=== PATIENT | female | born 1965 | race Caucasian/White ===

== ENCOUNTER 2023-03-21 14:53 | Observation (INO) | payer BC ==
[~2023-03-21] VITALS: Ht 157.5 cm; Wt 79.2 kg
[2023-03-21 15:51] LABS: BASOPHILS ABSOLUTE AUTO 0.08 K/mm3 (0.00-0.23); BASOPHILS PERCENT AUTO 1 % (0-2); EOSINOPHILS ABSOLUTE AUTO 0.23 K/mm3 (0.00-0.68); EOSINOPHILS PERCENT AUTO 3 % (0-6); Hematocrit 44.9 % (33.0-51.0); Hemoglobin 15.6 g/dL (11.5-16.0); IMMATURE GRAN ABSOLUTE AUTO 0.03 K/mm3 (0.00-0.10); IMMATURE GRAN PERCENT AUTO 0 % (0-1); LYMPHOCYTES ABSOLUTE AUTO 3.41 K/mm3 (0.84-5.20); LYMPHOCYTES PERCENT AUTO 41 % (21-46); MONOCYTES ABSOLUTE AUTO 0.68 K/mm3 (0.16-1.47); MONOCYTES PERCENT AUTO 8 % (4-13); Mean Corpuscular HGB 32.1 pg (26.0-34.0); Mean Corpuscular HGB Conc 34.7 g/dL (31.5-36.5); Mean Corpuscular Volume 92 fL (80-100); NEUTROPHILS ABSOLUTE AUTO 3.98 K/mm3 (1.96-9.15); NEUTROPHILS PERCENT AUTO 47 % (41-73); Platelet Count 339 K/mm3 (150-400); RDW Coefficient Variation 11.9 % (11.7-14.2); RDW Standard Deviation 40.8 fL (35.1-46.3); Red Blood Cell Count 4.86 M/mm3 (3.80-5.20); White Blood Cell Count 8.41 K/mm3 (4.00-11.30)
[2023-03-21 16:11] LABS: Albumin, Blood 4.2 g/dL (3.4-5.0); Albumin/Globulin Ratio 1.2 (0.8-1.8); Bilirubin, Total 0.6 mg/dL (0.1-1.0); Bun/Creatinine Ratio 22.2 (12.0-20.0); Creatinine, Blood 0.63 mg/dL (0.40-1.00); Globulin, Blood 3.5 g/dL (2.2-4.0); Potassium, Blood 3.6 mmol/L (3.5-5.5); Total Protein, Blood 7.7 g/dL (6.4-8.2)
[2023-03-21 21:24] VITALS: BP 131/102
[2023-03-21 22:11] VITALS: BP 117/76
--- NOTE | 2023-03-21 22:24 | NUR ---
ADMISSION NOTE REPORT RECEIVED FROM RUTH ANN MCFADDEN-ED. PATIENT TRANSPORTED TO FLOOR IN W/C AT 2120. A&OX4. PATIENT EFFECTIVELY COMMICATES NEEDS. CLEAR SPEECH. PATIENT INDEPENDENT IN ROOM. NO NEUROLOGICAL SIGNS OR SYMPTOMS AT THIS TIME. VSS. RR EVEN AND UNLABORED ON RA. TELE PENDING. PATIENT CONSUMED HALF OF A SANDWICH AND A PIECE OF CHEESE BEFORE LAYING DOWN FOR BED. NO ACUTE CONCERNS AT THIS TIME. PATIENT ORIENTED TO ROOM AND CALL LIGHT. CALL LIGHT WITHIN REACH BED LOW AND LOCKED. THIS RN WILL CONTINUE TO MONITOR. MRI HEAD W/O CONTRAST SCHEDULED FOR IN THE MORNING.
[2023-03-22 04:27] VITALS: BP 99/72
--- NOTE | 2023-03-22 04:57 | NUR ---
CATHETERIZATION LABORATORY TECHNICIAN SUMMARY NO ACUTE EVENTS THIS SHIFT. A&OX4. PATIENT EFFECTIVELY COMMUNICATES NEEDS. CLEAR SPEECH. TELE REVEALS SINUS RHYTHM, HR 60'S. NO NEUROLOGICAL SIGNS OR SYMPTOMS THROUGHOUT THE NIGHT. MRI IS SCHEDULED FOR TODAY. PATIENT NOTED TO SLEEP WELL WITHOUT ANY COMPLAINTS. BED LOW AND LOCKED. CALL LIGHT WITHIN REACH. THIS RN WILL CONTINUE TO MONITOR.
[2023-03-22 08:22] VITALS: BP 118/86
--- NOTE | 2023-03-22 14:52 | NUR ---
[facility] with many years of experience. I responded to a referral for spiritual care. She is pleasant and kind and has her son Nick corbett. They both share about the move to this area and about the importance of their family and of their emmie. I encourage self-care and provide encouragement and prayer. Patient responded well and displayed evidence of greater peace. I will continue to remain available to patient and family.
[2023-03-22] MEDS ORDERED: Flonase 0.05% N16 GM (15:00)
[2023-03-22] MEDS ORDERED: PHENY.5NI (15:01)
--- NOTE | 2023-03-22 16:05 | NUR ---
PT DISCHARGED THE PT VERBALIZED UNDERSTANDING OF THE DC INSTRUCTIONS. THE PTS PRESCRIPTIONS WERE FAXED TO [facility] ON [facility] REQUESTED. THE PT WWAS ENCOURAGED TO ESTABLISH AND FOLLOW UP WITH A PCP SSON POSSIBLE. THE PT DECLINED A WHEELCHAIR AND AMBULATED OUT ACCOMPANIED BY HER SON
== END 2023-03-22 15:15 | disposition home or self-care (01) ==
LOC: ER 14:53 → MEDS 14:54
PROVIDERS: Physician Assistant; ADMIT Internal Medicine
DX: R27.0 Ataxia, unspecified (principal)
CPT/HCPCS: 70450; 70551; 80053; 82947; 85025; 96360; 99285-25; G0378; J7030

== ENCOUNTER → 2024-04-01 | Outpatient (CLI) | payer BC ==
[~2024-04-01] MED LIST: Flonase 0.05% N16 GM; PHENY.5NI
[2024-04-03 19:09] LABS: HIV 1,2 COMBO ANTIGEN/ANTIBODY Negative (Negative)
[2024-04-04 11:19] LABS: HCV QNT BY NAAT (IU/ML) Not Detected; HCV QNT BY NAAT (LOG IU/ML) Not Detected; HCV QNT BY NAAT INTERP Not Detected (Not Detected)
== END ==
LOC: LAB SHORT 17:15 → LAB 17:15
PROVIDERS: Chiropractor
DX: Z20.9 Contact with and (suspected) exposure to unspecified communicable disease (principal)
CPT/HCPCS: 87389; 87522